=== PATIENT | male | born 1980 | race Caucasian/White ===

== ENCOUNTER 2020-08-15 09:11 | Emergency (ER) | payer OTHER ==
[2020-08-15] MEDS ORDERED: DEXAMETHASONE 10 MG/ML VIAL PO STA (09:31)
[2020-08-15] MEDS ORDERED: CHERRY SYRUP 10 ML UDC PO ONE (09:31)
[2020-08-15] MEDS ORDERED: KETOROLAC 60 MG/2 ML VIAL IM STA (09:31)
--- NOTE | 2020-08-15 09:34 | ED Physician Documentation ---
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 He states that he is having difficulty with getting a deep breath and with movement increasing his pain. If he moves his back will spasm. He denies any spasms in his legs and he has had these previously with dehydration. He denies any current illness states that he has felt awesome every day when he wakes up and he has no specific symptoms otherwise. Review of Systems Constitutional: denies: Fever Eyes: denies: Decreased vision Ears: denies: Ear pain Nose: denies: Congestion Throat: denies: Sore throat Cardiac: denies: Chest pain / pressure, Palpitations Respiratory: denies: Dyspnea, Cough GI: denies: Abdominal Pain, Nausea, Vomiting, Constipation, Diarrhea : denies: Dysuria, Frequency Skin: denies: Rash Musculoskeletal: denies: Neck pain, Back pain, Extremity pain Neurologic: denies: Generalized weakness, Focal weakness, Numbness PD PAST MEDICAL HISTORY - Present Medications Home Medications: Ambulatory Orders Medication Instructions Recorded Confirmed Cyclobenzaprine [Flexeril] 10 mg PO TID PRN #20 tablet 08/15/20 Hydrocodone/Acetaminophen [[place] 1 - 2 each PO Q6HR PRN #14 tablet 08/15/20 5-325 Tablet] - Allergies Allergies/Adverse Reactions: Allergies Allergy/AdvReac Type Severity Reaction Status Date / Time No Known Drug Allergies Allergy Verified 08/15/20 09:23 PD ED PE NORMAL - Vitals Vital signs reviewed: Yes (hypertensive ) - General General: Alert and oriented X 3, Well developed/nourished, Other (The patient is sitting upright and using both arms to push is body up as a position of comfort.) - HEENT HEENT: Atraumatic, PERRL, EOMI - Neck Neck: Supple, no meningeal sign, No bony TTP - Cardiac Cardiac: RRR, No murmur - Respiratory Respiratory: No respiratory distress, Other (diminished breath sounds bilat) - Abdomen Abdomen: Soft, Non tender - Back Back: No CVA TTP, No spinal TTP, Other (mild tenderness to the muscles of the left lower chest wall posteriorly from the scapula to the costal margin. ) - Derm Derm: Normal color, Warm and dry, No rash - Extremities Extremities: No deformity, No edema - Neuro Neuro: Alert and oriented X 3, food service 2-12 intact, No motor deficit, No sensory deficit, Normal speech Eye Opening: Spontaneous Motor: Obeys Commands Verbal: Oriented GCS Score: 15 - Psych Psych: Normal mood, Normal affect Results - Vitals Vitals: Vital Signs - 24 hr 08/15/20 09:20 Temperature 37 C Heart Rate 90 Respiratory 18 Rate Blood Pressure 125/83 H O2 Saturation 99 Oxygen O2 Source Room air PD MEDICAL DECISION MAKING - ED course Complexity details: reviewed results, re-evaluated patient, considered differential, d/w patient ED course: 40-year-old male with acute latissimus spasm on the left side he is certain that this is related to some odd positioning working on an aircraft from yesterday. He has tenderness to the area he has pain with movement and this appears to be a musculoskeletal injury as presented. He is administered dexamethasone 10 mg and Toradol [address] him on some pain medication a muscle relaxant. Imaging was not performed today. Departure - Departure Disposition: 01 Home, Self Care Clinical Impression: Spasm of back muscles Instructions: ED Spasm Back No Trauma Follow-Up: [facility] [Provider Group] Prescriptions: Hydrocodone/Acetaminophen [[place] 5-325 Tablet] 1 - 2 each PO Q6HR PRN #14 tablet PRN Reason: Pain Cyclobenzaprine [Flexeril] 10 mg PO TID PRN #20 tablet PRN Reason: Spasms Forms: Activity restrictions
[2020-08-15 10:00] VITALS: BP 123/93
== END 2020-08-15 10:08 | disposition home or self-care (01) ==
LOC: ED 09:11
DX: M62.830 Muscle spasm of back (principal); M54.9 Dorsalgia, unspecified
CPT/HCPCS: 96372; 99283; 99284; A9270

== ENCOUNTER 2020-09-12 10:39 | Emergency (ER) | payer OTHER ==
--- NOTE | 2020-09-12 11:10 | ED Physician Documentation ---
PD HPI BACK PAIN - Stated complaint Stated Complaint: BACK SPASMS - Chief complaint Chief Complaint: Back Pain - History obtained from History obtained from: Patient - Additional information Additional information: Previously healthy 40-year-old gentleman who is active duty in the [employer]. About a month ago he had what he thought was back spasm in the left upper back. He was seen here and prescribed Flexeril and hydrocodone. He did not feel like the meds were too helpful but the pain went away after a few days. Recurred a few days ago. It is to the left of the upper thoracic spine. It is worse with deep breathing but not particularly with bending or motion. He denies chest pain or shortness of breath other than the fact that he has to splint his breaths a little bit for pain. 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 Review of Systems Ten Systems: 10 systems reviewed and negative Constitutional: reports: Reviewed and negative Nose: reports: Reviewed and negative Throat: reports: Reviewed and negative Cardiac: reports: Reviewed and negative PD PAST MEDICAL HISTORY - Past Surgical History Past Surgical History: Yes - Present Medications Home Medications: Ambulatory Orders Medication Instructions Recorded Confirmed Cyclobenzaprine [Flexeril] 10 mg PO TID PRN #20 tablet 08/15/20 Hydrocodone/Acetaminophen [[place] 1 - 2 each PO Q6HR PRN #14 tablet 08/15/20 5-325 Tablet] Meloxicam [Mobic] 7.5 mg PO BID PRN #20 tablet 09/12/20 Methocarbamol [Robaxin-750] 750 mg PO TID PRN #15 tablet 09/12/20 - Allergies Allergies/Adverse Reactions: Allergies Allergy/AdvReac Type Severity Reaction Status Date / Time No Known Drug Allergies Allergy Verified 09/12/20 10:49 - Social History Does the pt smoke?: No Smoking Status: Never smoker Does the pt drink ETOH?: No Does the pt have substance abuse?: No - Immunizations Immunizations are current?: Yes - POLST Patient has POLST: No PD ED PE NORMAL - Vitals Vital signs reviewed: Yes - General General: Alert and oriented X 3, Other (Marfanoid appearance with hypermobile joints, he is able to touch his thumb to his forearm.) - HEENT HEENT: PERRL, EOMI - Neck Neck: Supple, no meningeal sign, No bony TTP - Cardiac Cardiac: RRR, No murmur - Respiratory Respiratory: No respiratory distress, Clear bilaterally - Abdomen Abdomen: Non tender - Back Back: No CVA TTP, No spinal TTP - Derm Derm: Normal color, Warm and dry - Extremities Extremities: No deformity, No tenderness to palpate, Normal ROM s pain, No edema, No calf tenderness / cord - Neuro Neuro: Alert and oriented X 3, No motor deficit, No sensory deficit, Normal speech Eye Opening: Spontaneous Motor: Obeys Commands Verbal: Oriented GCS Score: 15 - Psych Psych: Normal mood, Normal affect Results - Vitals Vitals: Vital Signs - 24 hr 09/12/20 10:45 Temperature 37.1 C Heart Rate 76 Respiratory 16 Rate Blood Pressure 132/84 H O2 Saturation 100 Oxygen O2 Source Room air - Labs Labs: Laboratory Tests 09/12/20 09/12/20 11:16 11:16 WBC 6.8 RBC 4.90 Hgb 15.4 Hct 44.5 MCV 90.8 MCH 31.4 H MCHC 34.6 RDW 12.4 Plt Count 273 MPV 8.8 Neut # (Auto) 4.7 Lymph # (Auto) 1.4 L Hand # (Auto) 0.5 Eos # (Auto) 0.2 Baso # (Auto) 0.1 Absolute Nucleated RBC 0.00 Nucleated RBC % 0.0 Sodium 136 Potassium 3.9 Chloride 101 Carbon Dioxide 26 Anion Gap 9.0 BUN 9 Creatinine 1.0 Estimated GFR (MDRD) 83 L Glucose 81 Calcium 9.5 Total Bilirubin 0.8 AST 21 ALT 22 Alkaline Phosphatase 34 L Total Protein 8.1 Albumin 4.9 Globulin 3.2 Albumin/Globulin Ratio 1.5 Lipase 30 - Rads (name of study) CTA Chest Radiology: EMP read contemporaneously (Thoracic degen dz, no PE/dissection) PD MEDICAL DECISION MAKING - ED course ED course: 40-year-old gentleman with what on the face of it seems like uncomplicated upper back pain. He is marfanoid though and this raises the question of connective tissue disorders and aortic pathology so a CT will be done. He declines pain medication on initial evaluation. Departure - Departure Disposition: 01 Home, Self Care Clinical Impression: Degenerative arthritis of thoracic spine, Back pain Condition: Good Record reviewed to determine appropriate education?: Yes Instructions: ED Neck Back Pain General Prescriptions: Meloxicam [Mobic] 7.5 mg PO BID PRN #20 tablet PRN Reason: Pain Methocarbamol [Robaxin-750] 750 mg PO TID PRN #15 tablet PRN Reason: back pain Comments: Talk with your doctor about physical therapy for your back. Consider talking with your doctor about testing for Marfan syndrome. Thankfully the CAT scan shows no aortic pathology or blood clot in your lungs. You do have some thoracic degenerative disease in your back. Return if worsening.
[2020-09-12] MEDS ORDERED: IOVERSOL 320 100 ML VIAL IVP ONE ×2 (11:23→13:54)
[2020-09-12 11:27] LABS: BASOPHILS # (AUTO) 0.1 10^3/uL (0.0-0.1); EOSINOPHILS # (AUTO) 0.2 10^3/uL (0.0-0.7); EOSINOPHILS % (AUTO) 2.8 %; HGB - HEMOGLOBIN 15.4 g/dL (14.0-18.0); LYMPHOCYTES # (AUTO) 1.4 10^3/uL (1.5-3.5); LYMPHOCYTES % (AUTO) 19.9 %; MEAN CORPUSCULAR HEMOGLOBIN 31.4 pg (27.0-31.0); MEAN CORPUSCULAR HGB CONC 34.6 g/dL (32.0-36.0); MEAN CORPUSCULAR VOLUME 90.8 fL (80.0-94.0); MEAN PLATELET VOLUME 8.8 fL (7.4-11.4); MONOCYTES # (AUTO) 0.5 10^3/uL (0.0-1.0); MONOCYTES % (AUTO) 7.6 %; NEUTROPHILS # (AUTO) 4.7 10^3/uL (1.5-6.6); NEUTROPHILS % (AUTO) 68.3 %; PLT - PLATELET COUNT 273 10^3/uL (130-450); RED CELL DISTRIBUTION WIDTH 12.4 % (12.0-15.0); WHITE BLOOD COUNT 6.8 x10^3/uL (4.8-10.8)
[2020-09-12 11:44] LABS: ALBUMIN 4.9 g/dL (3.2-5.5); ALBUMIN/GLOBULIN RATIO 1.5 (1.0-2.2); BILIRUBIN,TOTAL 0.8 mg/dL (0.2-1.0); CALCIUM 9.5 mg/dL (8.5-10.3); TOTAL PROTEIN 8.1 g/dL (6.7-8.2)
--- NOTE | 2020-09-12 12:34 | CT Report ---
PROCEDURE: ANGIO CHEST W/WO INDICATIONS: back pain, marfanoid, aorta protocol CONTRAST: IV CONTRAST: Optiray 320 ml: [id number] PO CONTRAST: *NO PO CONTRAST TECHNIQUE: After the administration of intravenous contrast, 2 mm thick sections acquired from the pulmonary api stevie to the posterior costophrenic angles. 3-dimensional maximum intensity projection (MIP) coronal a nd sagittal reformats were then acquired through the thorax. For radiation dose reduction, the follow ing was used: automated exposure control, adjustment of mA and/or kV according to patient size. COMPARISON: None FINDINGS: Image quality: Excellent. Pulmonary arteries: Pulmonary arteries are normal in size, and demonstrate no intraluminal filling d efects to suggest central pulmonary embolism. Lungs and pleura: Lungs are clear. No pleural effusions or pneumothorax. Central and peripheral ai rways are patent. Mediastinum: Heart size is normal, without pericardial effusion. No mediastinal or hilar adenopathy . Thoracic aorta is normal in caliber and enhancement. Esophagus is normal in caliber, without hiat al hernia. Bones and chest wall: No suspicious bony lesions. Ribs and thoracic spine appear intact throughout. The thyroid is normal. No axillary or supraclavicular adenopathy. Abdomen: Visualized upper abdominal solid organs appear normal in the early arterial phase of enhanc ement. IMPRESSION: 1. No aortic dissection. 2. No pulmonary embolism. 3. No acute abnormality of the chest. The thoracic spine has mild degenerative changes. Reviewed by: Iban Sheth on 09/12/2020 12:33 PM [facility] Approved by: Iban Sheth on 09/12/2020 12:33 PM PST Station ID: [id number]
[2020-09-12 12:49] VITALS: BP 131/80
== END 2020-09-12 13:00 | disposition home or self-care (01) ==
LOC: ED 10:39
DX: M47.814 Spondylosis without myelopathy or radiculopathy, thoracic region (principal)
CPT/HCPCS: 36415; 71275; 80053; 83690; 85025; 99284; Q9967